=== PATIENT | female | born 1975 | race Caucasian/White ===

== ENCOUNTER → 2018-03-07 | Outpatient (CLI) | payer OTHER ==
--- NOTE | 2018-03-08 10:18 | MM ---
Reason for exam: screening (asymptomatic). Baseline mammogram. History: Patient is nulliparous. Physical Findings: Nurse Summary: 1 x 1cm nodule in the left breast at 1 o'clock (nurse ts). MG Screening Mammo w CAD Bilateral CC and MLO view(s) were taken. The breast tissue is heterogeneously dense. This may lower the sensitivity of mammography. Right upper outer quadrant and lower inner quadrant focal asymmetries at posterior depth. These results were verbally communicated with the patient and result sheet given to the patient on 03/07/18. ASSESSMENT: Incomplete: need additional imaging evaluation, BI-RAD 0 RECOMMENDATION: Ultrasound of the right breast. (right upper outer quadrant and lower inner quadrant, left palpable)
--- NOTE | 2018-03-08 10:21 | USB ---
Reason for exam: additional evaluation requested from abnormal screening. History: Patient is nulliparous. Physical Findings: Breast exam preformed at baseline screening. US Breast Workup Limited RENARD Left limited breast ultrasound including focal area of concern, retroareolar and axilla demonstrates duct ectasia at the nipple. Right limited breast ultrasound including focal area of concern, retroareolar and axilla demonstrates a 1.1 x 0.4 x 1.3cm mixed lesion at 6 o'clock for which a biopsy is recommended. These results were verbally communicated with the patient and result sheet given to the patient on 03/07/18. ASSESSMENT: Suspicious, BI-RAD 4 RECOMMENDATION: Ultrasound core biopsy of the right breast. (6 o'clock) Patient is not sure on surgeon or scheduling procedure at this time due to insurance. She will call us back with surgeon choice next week. Dr. Madden's office made aware. PRELIMINARY REPORT CALLED AND FAXED TO DR. MADDEN ON 03/08/18.
== END | disposition home or self-care (01) ==
LOC: RADMAMWWP 15:24
PROVIDERS: ATTEND Family Medicine
DX: Z12.31 Encounter for screening mammogram for malignant neoplasm of breast (principal); R92.8 Other abnormal and inconclusive findings on diagnostic imaging of breast
CPT/HCPCS: 77067